=== PATIENT | male | born 1975 | race Caucasian/White ===

== ENCOUNTER 2019-07-04 11:33 | Emergency (ER) | payer MEDICAID ==
[~2019-07-04] VITALS: Ht 185.4 cm; Wt 68.0 kg
--- NOTE | 2019-07-04 11:41 | NUR ---
ED Nurse Note: PT brought in by 49 from home for ETOH comsumption. pt reports binge drinking x 4 days with n/v. pt. aaox4. ambulatory with steady gait. no s/s of acute distress noted
[2019-07-04 11:43] VITALS: BP 126/84
[2019-07-04] MEDS ORDERED: Thiamine HCl 100 MG in D5W 55 ML IVPB ONE (12:00)
[2019-07-04] MEDS ORDERED: LORazepam Inj 2mg/ml 1ml IV ONE (12:00)
[2019-07-04 12:25] LABS: EOSINOPHILS % (AUTO) 1.6 % (0.0-3.0); HEMATOCRIT 49.1 % (42.0-52.0); HEMOGLOBIN 17.1 G/DL (14.2-18.0); LYMPHOCYTES % (AUTO) 41.2 % (20.0-45.0); MEAN CORPUSCULAR VOLUME 95 FL (80-99); MONOCYTES % (AUTO) 8.7 % (1.0-10.0); NEUTROPHILS % (AUTO) 47.5 % (45.0-75.0); PLATELET COUNT 194 K/UL (150-450); RED BLOOD COUNT 5.17 M/UL (4.70-6.10); RED CELL DISTRIBUTION WIDTH 11.2 % (11.6-14.8); WHITE BLOOD COUNT 5.6 K/UL (4.8-10.8)
--- NOTE | 2019-07-04 12:28 | NUR ---
ED Nurse Note: Blood sample urine sent down to lab
--- NOTE | 2019-07-04 12:34 | NUR ---
ED Nurse Note: accucheck 68, orange juice and sodagive. pt is alert x4 .
[2019-07-04] MEDS ORDERED: ZOFRAN4 M3 ORAL (12:40)
[2019-07-04] MEDS ORDERED: ATIVAN1 MG ORAL (12:40)
[2019-07-04] MEDS ORDERED: OMEPRAZOLE20 M2 ORAL (12:40)
--- NOTE | 2019-07-04 12:43 | NUR ---
ED Nurse Note: turned of the lights to promote a relaxing environment
[2019-07-04 12:45] LABS: APPEARANCE,URINE CLEAR; BILIRUBIN, URINE NEGATIVE (NEGATIVE); COLOR,URINE PALE YELLOW; GLUCOSE, URINE (UA) NEGATIVE (NEGATIVE); KETONES,URINE 1+ (NEGATIVE); LEUKOCYTE ESTERASE ,URINE NEGATIVE (NEGATIVE); NITRITE,URINE NEGATIVE (NEGATIVE); PH,URINE 6.5 (4.5-8.0); PROTEIN,URINE NEGATIVE (NEGATIVE); UROBILINOGEN,URINE NORMAL MG/DL (0.0-1.0)
[2019-07-04 12:56] LABS: ALANINE AMINOTRANSFERASE 87 U/L (12-78); ALBUMIN 4.4 G/DL (3.4-5.0); ALBUMIN/GLOBULIN RATIO 1.1 (1.0-2.7); ALKALINE PHOSPHATASE 115 U/L (46-116); ASPARTATE AMINO TRANSFERASE 174 U/L (15-37); BILIRUBIN,TOTAL 0.9 MG/DL (0.2-1.0); BLOOD UREA NITROGEN 12 mg/dL (7-18); CALCIUM 9.1 MG/DL (8.5-10.1); CARBON DIOXIDE 25 MMOL/L (21-32); CREATININE 0.8 MG/DL (0.55-1.30)
[2019-07-04 12:59] LABS: PHOSPHORUS 4.4 MG/DL (2.5-4.9)
[2019-07-04 13:03] LABS: CHLORIDE 102 MMOL/L (98-107); POTASSIUM 4.3 MMOL/L (3.5-5.1); SODIUM 143 MMOL/L (136-145)
[2019-07-04 14:11] VITALS: BP 129/74
--- NOTE | 2019-07-04 14:11 | NUR ---
ER DISCHARGE NOTE: Patient is cleared to be discharged per ERMD, pt is aox4, on room air, with stable vital signs. pt was given dc and prescription instructions, pt was able to verbalize understanding, pt id band and iv site removed without complications. pt is able to ambulate with steady gait. pt took all belongings.
--- NOTE | 2019-07-10 23:15 | Emergency Room Report ---
History of Present Illness General Chief Complaint: Alcohol Intoxication Source: Patient Present Illness HPI Is a 43-year-old male presents after increased altered mental status. Patient reportedly had been drinking heavily for the past 4 days associated with nausea and vomiting. Prior history of alcohol abuse. He had previously been noted to have some episodes of withdrawal in the past. Allergies: Coded Allergies: No Known Allergies (Unverified , 07/04/19) Patient History Past Medical History: see triage record Reviewed Nursing Documentation: PMH: Agreed; PSxH: Agreed Nursing Documentation-PM Past Medical History: No History, Except For Review of Systems All Other Systems: negative except mentioned in HPI Physical Exam Sp02 EP Interpretation: reviewed, normal General Appearance: normal inspection, well appearing, no apparent distress, alert, GCS 15, non-toxic Head: atraumatic ENT: normal ENT inspection, hearing grossly normal, normal voice Neck: normal inspection, full range of motion, supple, no bony tend Respiratory: normal inspection, lungs clear, normal breath sounds, no respiratory distress, no retraction, no wheezing Cardiovascular #1: regular rate, rhythm, no edema Gastrointestinal: normal inspection, normal bowel sounds, non tender, soft, no guarding, no hernia Genitourinary: no CVA tenderness Musculoskeletal: normal inspection, back normal, normal range of motion Neurologic: alert, motor strength/tone normal, manager of internal audit III-XII nml as tested, responsive, speech normal, normal inspection, other - Tremulous Psychiatric: normal inspection, judgement/insight normal, mood/affect normal Medical Decision Making Diagnostic Impression: Primary Impression: Alcohol withdrawal ER Course Patient presented for increased shakiness and recent alcohol intake. Differential diagnosis include was not limited to alcohol intoxication, electrolyte abnormality, alcohol withdrawal, stimulant use among others. Because of complexity of patient's case laboratory tests and imaging studies were ordered. Patient did have a negative blood alcohol level. He was given IV thiamine as well as IV Ativan with improvement of symptoms. Patient was noted to have decreased tremulousness. He was able to ambulate without assistance. Patient was given prescription for Ativan and was advised to follow -up with outpatient substance abuse treatment. He was advised to return if worse. The patient is advised to follow up with primary care doctor in 1-2 days. Patient is advised to return if any worsening condition or if any changes in status that are concerning. This report is dictated with File[employer] associate professor of geography software which may occasionally lead to discrepancies related to use of this software. Labs Test 07/04/19 12:09 07/04/19 12:18 Urine Color Pale yellow Urine Appearance Clear Urine pH 6.5 (4.5-8.0) Urine Specific Parsons 1.010 (1.005-1.035) Urine Protein Negative (NEGATIVE) Urine Glucose (UA) Negative (NEGATIVE) Urine Ketones 1+ (NEGATIVE) Urine Blood Negative (NEGATIVE) Urine Nitrite Negative (NEGATIVE) Urine Bilirubin Negative (NEGATIVE) Urine Urobilinogen Normal MG/DL (0.0-1.0) Urine Leukocyte Esterase Negative (NEGATIVE) Urine Opiates Screen Negative (NEGATIVE) Urine Barbiturates Screen Negative (NEGATIVE) Phencyclidine (PCP) Screen Negative (NEGATIVE) Urine Amphetamines Screen Negative (NEGATIVE) Urine Benzodiazepines Screen Negative (NEGATIVE) Urine Cocaine Screen Negative (NEGATIVE) Urine Marijuana (THC) Screen Positive (NEGATIVE) White Blood Count 5.6 K/UL (4.8-10.8) Red Blood Count 5.17 M/UL (4.70-6.10) Hemoglobin 17.1 G/DL (14.2-18.0) Hematocrit 49.1 % (42.0-52.0) Mean Corpuscular Volume 95 FL (80-99) Mean Corpuscular Hemoglobin 33.0 PG (27.0-31.0) Mean Corpuscular Hemoglobin Concent 34.8 G/DL (32.0-36.0) Red Cell Distribution Width 11.2 % (11.6-14.8) Platelet Count 194 K/UL (150-450) Mean Platelet Volume 5.5 FL (6.5-10.1) Neutrophils (%) (Auto) 47.5 % (45.0-75.0) Lymphocytes (%) (Auto) 41.2 % (20.0-45.0) Monocytes (%) (Auto) 8.7 % (1.0-10.0) Eosinophils (%) (Auto) 1.6 % (0.0-3.0) Basophils (%) (Auto) 1.0 % (0.0-2.0) Sodium Level 143 MMOL/L (136-145) Potassium Level 4.3 MMOL/L (3.5-5.1) Chloride Level 102 MMOL/L (98-107) Carbon Dioxide Level 25 MMOL/L (21-32) Blood Urea Nitrogen 12 mg/dL (7-18) Creatinine 0.8 MG/DL (0.55-1.30) Estimat Glomerular Filtration Rate > 60 mL/min (>60) Glucose Level 77 MG/DL (74-106) Calcium Level 9.1 MG/DL (8.5-10.1) Phosphorus Level 4.4 MG/DL (2.5-4.9) Magnesium Level 2.0 MG/DL (1.8-2.4) Total Bilirubin 0.9 MG/DL (0.2-1.0) Aspartate Amino Transf (AST/SGOT) 174 U/L (15-37) Alanine Aminotransferase (ALT/SGPT) 87 U/L (12-78) Alkaline Phosphatase 115 U/L (46-116) Total Protein 8.5 G/DL (6.4-8.2) Albumin 4.4 G/DL (3.4-5.0) Globulin 4.1 g/dL Albumin/Globulin Ratio 1.1 (1.0-2.7) Salicylates Level 2.4 ug/mL (2.8-20) Acetaminophen Level < 0 MCG/ML (10-30) Serum Alcohol < 2 mg/dL Status: improved Disposition: HOME, SELF-CARE Condition: Stable Scripts Omeprazole (OMEPRAZOLE) 20 Mg Capsule.dr 20 MG ORAL DAILY, #30 CAP Prov: Oliverio Tomlinson MD 07/04/19 Ondansetron* (ZOFRAN*) 4 Mg Tablet 4 MG ORAL Q6H PRN for Nausea & Vomiting, #14 TAB Prov: Oliverio Tomlinson MD 07/04/19 Lorazepam* (ATIVAN*) 1 Mg Tablet 1 MG ORAL THREE TIMES A DAY, #15 TAB Prov: Oliverio Tomlinson MD 07/04/19 Referrals: NOT CHOSEN IPA/,REFERRING (PCP) Patient Instructions: Alcohol Intoxication, [id number] Additional Instructions: Follow up with outpatient alcohol therapy. Return if worse. Oliverio Tomlinson MD Jul 10, 2019 23:15
== END 2019-07-04 14:11 | disposition home or self-care (01) ==
LOC: EDBD 11:33 → EMR 14:11
DX: F10.129 Alcohol abuse with intoxication, unspecified (principal); R11.2 Nausea with vomiting, unspecified
CPT/HCPCS: 36415; 80053; 80307; 81003; 82962; 83735; 84100; 85025; 96361; 96365; 96375; G0480; G0481; J7030; Z7502; 99284

== ENCOUNTER 2019-07-11 16:00 | Emergency (ER) | payer MEDICAID ==
[~2019-07-11] VITALS: Ht 188 cm; Wt 68.0 kg
[~2019-07-11 16:00] MED LIST: ATIVAN1 MG ORAL; OMEPRAZOLE20 M2 ORAL; ZOFRAN4 M3 ORAL
[2019-07-11] MEDS ORDERED: Thiamine HCl 100 MG in D5W 55 ML IV ONE (16:45)
--- NOTE | 2019-07-11 17:05 | NUR ---
ED Nurse Note:blood and urine sent to labs and IV fluids with med given to him
[2019-07-11 17:12] VITALS: BP 128/89
[2019-07-11 17:33] LABS: APPEARANCE,URINE CLEAR; BILIRUBIN, URINE NEGATIVE (NEGATIVE); COLOR,URINE AMBER; GLUCOSE, URINE (UA) NEGATIVE (NEGATIVE); HEMATOCRIT 42.6 % (42.0-52.0); KETONES,URINE NEGATIVE (NEGATIVE); LEUKOCYTE ESTERASE ,URINE NEGATIVE (NEGATIVE); MEAN CORPUSCULAR VOLUME 96 FL (80-99); NITRITE,URINE NEGATIVE (NEGATIVE); PH,URINE 6 (4.5-8.0); PLATELET COUNT 94 K/UL (150-450); PROTEIN,URINE NEGATIVE (NEGATIVE); RED BLOOD COUNT 4.45 M/UL (4.70-6.10); RED CELL DISTRIBUTION WIDTH 11.2 % (11.6-14.8); UROBILINOGEN,URINE NORMAL MG/DL (0.0-1.0); WHITE BLOOD COUNT 4.5 K/UL (4.8-10.8)
[2019-07-11 17:43] LABS: ANION GAP 15 mmol/L (5-15); BLOOD UREA NITROGEN 11 mg/dL (7-18); CALCIUM 8.2 MG/DL (8.5-10.1); CARBON DIOXIDE 26 MMOL/L (21-32); CHLORIDE 106 MMOL/L (98-107); CREATININE 0.8 MG/DL (0.55-1.30); POTASSIUM 3.8 MMOL/L (3.5-5.1); SODIUM 147 MMOL/L (136-145)
[2019-07-11 17:48] LABS: ALANINE AMINOTRANSFERASE 132 U/L (12-78); ALBUMIN 3.8 G/DL (3.4-5.0); ALBUMIN/GLOBULIN RATIO 1.1 (1.0-2.7); ALKALINE PHOSPHATASE 104 U/L (46-116); ASPARTATE AMINO TRANSFERASE 179 U/L (15-37); BILIRUBIN,TOTAL 0.4 MG/DL (0.2-1.0)
[2019-07-11 17:49] LABS: PHOSPHORUS 3.7 MG/DL (2.5-4.9)
[2019-07-11 18:10] VITALS: BP 106/66
[2019-07-11] MEDS ORDERED: LORazepam 0.5mg tab ORAL ONE (18:15)
--- NOTE | 2019-07-11 18:16 | Emergency Room Report ---
History of Present Illness General Chief Complaint: Seizure Source: Patient Present Illness HPI 43 YO Male presents to the ED C/O " not feeling well" and feeling "very weak" x 1 week. Pt. has hx of ETOH dependence and is scheduled to be checked into detox facility [place] in [place]. Pt. has been detoxing at home with rx'd Ativan. Pt. reports very minimal use if needed. Pt. reports he "face planted at home" He c/o 3/10 in severity CORTES. and reports some tenderness to the top of his head. Denies bruises or lacerations. He denies nausea or vomiting. Pt. is restless. He denies open wounds or bleeding. 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 He reports previous IVDU and states he has been clean x 6 weeks. previous drug of choice was Meth. He denies fevers or chills. He reports total body aches. He also reports hx of liver disease,Hep C.and Crohn's disease. Significant other who is bedside reports pt. is constantly c/o " not feeling well" and she reports she has noticed he has intermittent episodes of slurred speech and drooling that is transient. Pt. denies loss of gross motor movements or paresthesias. responsible libertarian who is bedside reports she is with him from 8pm to early mornings, pt. is alone the rest of the time. Pt. is a daily smoker . Allergies: Coded Allergies: No Known Allergies (Unverified , 07/04/19) Patient History Past Medical History: see triage record, other - hep. c. and crohn's Past Surgical History: none Pertinent Family History: none Social History: Reports: alcohol use, drug use - in remission- meth Reviewed Nursing Documentation: PMH: Agreed; PSxH: Agreed Nursing Documentation-PMH Hx Seizures: Yes - ALCOHOL INDUCED Review of Systems All Other Systems: negative except mentioned in HPI Physical Exam Vital Signs Date Time Temp Pulse Resp B/P (MAP) Pulse Ox O2 Delivery O2 Flow Rate FiO2 07/11/19 16:12 97.5 100 18 128/89 (102) 96 Sp02 EP Interpretation: reviewed, normal General Appearance: no apparent distress, alert, GCS 15, non-toxic Head: normocephalic, atraumatic Eyes: bilateral eye normal inspection, bilateral eye PERRL, bilateral eye EOMI , bilateral eye other - no jaundice ENT: hearing grossly normal, normal voice, other - no oral trauma/ bleeding Neck: full range of motion, no meningismus Respiratory: chest non-tender, lungs clear, normal breath sounds, no respiratory distress, no accessory muscle use, no wheezing, speaking full sentences Cardiovascular #1: regular rate, rhythm, normal capillary refill Gastrointestinal: normal bowel sounds, non tender, soft, non-distended, no guarding Musculoskeletal: normal range of motion, gait/station normal, non-tender Neurologic: alert, motor strength/tone normal, human resource internship III-XII nml as tested, distal neuro normal, oriented x3, sensory intact, responsive, speech normal, normal gait, grossly normal, no focal defects, other - equal manager logistic strength, negative pronator drift. normal finger to nose, no nystagmus, negative rhomberg. No facial droop. No obvious liver flap Psychiatric: judgement/insight normal, other Skin: no rash, normal color - no jaundice Lymphatic: no adenopathy Medical Decision Making PA Attestation Dr. Wynn is my supervising Physician whom patient management has been discussed with. Diagnostic Impression: Primary Impression: Alcohol dependence with acute intoxication, continuous Qualified Codes: F10.220 - Alcohol dependence with intoxication, uncomplicated ER Course 43 YO Male presents to the ED C/O " not feeling well" and feeling "very weak" x 1 week. Pt. has hx of ETOH dependence and is scheduled to be checked into detox facility tomorrow in [place]. Pt. has been detoxing at home with rx'd Ativan. Pt. reports very minimal use if needed. Pt. reports he "face planted at home" He c/o 3/10 in severity CORTES. and reports some tenderness to the top of his head. Denies bruises or lacerations. He denies nausea or vomiting. Pt. is restless. He denies open wounds or bleeding. 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 He reports previous IVDU and states he has been clean x 6 weeks. previous drug of choice was Meth. He denies fevers or chills. He reports total body aches. He also reports hx of liver disease,Hep C.and Crohn's disease. Significant other who is bedside reports pt. is constantly c/o " not feeling well" and she reports she has noticed he has intermittent episodes of slurred speech and drooling that is transient. Pt. denies loss of gross motor movements or paresthesias. responsible libertarian who is bedside reports she is with him from 8pm to early mornings, pt. is alone the rest of the time. Pt. is a daily smoker. Ddx considered but are not limited to ETOH, Trauma, Syncope, dementia, OD, encephalopathy, intracranial bleed/subdural hematoma, CVA, acute alcohol intoxication, electrolyte abnormality just to name a few Vital signs: are WNL, pt. is afebrile H&PE are most consistent with ETOH abuse and continued use. Patient is somewhat anxious but is able to sit still and answer questions appropriately. Patient's vital signs are normal and do not indicate acute complicated withdrawal symptoms at this time. PT. neuro exam is normal. No focal deficits. Normal motor function. Pt. able to answer questions and provide sufficient amount of detail without difficulty with word recall or increased response time. ORDERS: -CBC:4.2 wbc's -CMP: Elevated LFT's , AST> ALT -ETOH: 312 -Ammonia: WNL -Magnesium: WNL - UDS: Positive for THC. Tylenol and ASA; WNL CT Head No Contrast: "No acute intracranial hemorrhage, extra-axial fluid collection, edema, mass-effect or acute cortical infarct. No fracture." Per official radiology report- Please see report for specific details. ED INTERVENTIONS: --1 Liter NS - Thiamine IV - Ativan 0.5 PO -Toradol 15mg IV Pt. requested additional Ativan for w/d symptoms. Pt. was denied additional dose as his ETOH was elevated, and he has normal VS that do not indicate acute w /d. Pt. requested to be d/c shortly after. DISCHARGE: At this time pt. is stable for d/c to home. Will provide printed patient care instructions, and any necessary prescriptions. Care plan and follow up instructions have been discussed with the patient prior to discharge. Labs Test 07/11/19 16:50 White Blood Count 4.5 K/UL (4.8-10.8) Red Blood Count 4.45 M/UL (4.70-6.10) Hemoglobin 15.0 G/DL (14.2-18.0) Hematocrit 42.6 % (42.0-52.0) Mean Corpuscular Volume 96 FL (80-99) Mean Corpuscular Hemoglobin 33.6 PG (27.0-31.0) Mean Corpuscular Hemoglobin Concent 35.1 G/DL (32.0-36.0) Red Cell Distribution Width 11.2 % (11.6-14.8) Platelet Count 94 K/UL (150-450) Mean Platelet Volume 5.4 FL (6.5-10.1) Neutrophils (%) (Auto) % (45.0-75.0) Lymphocytes (%) (Auto) % (20.0-45.0) Monocytes (%) (Auto) % (1.0-10.0) Eosinophils (%) (Auto) % (0.0-3.0) Basophils (%) (Auto) % (0.0-2.0) Differential Total Cells Counted 100 Neutrophils % (Manual) 45 % (45-75) Lymphocytes % (Manual) 37 % (20-45) Monocytes % (Manual) 6 % (1-10) Eosinophils % (Manual) 2 % (0-3) Basophils % (Manual) 0 % (0-2) Band Neutrophils 0 % (0-8) Platelet Estimate Decreased Platelet Morphology Normal Red Blood Cell Morphology Normal Urine Color Elli Urine Appearance Clear Urine pH 6 (4.5-8.0) Urine Specific Fries 1.015 (1.005-1.035) Urine Protein Negative (NEGATIVE) Urine Glucose (UA) Negative (NEGATIVE) Urine Ketones Negative (NEGATIVE) Urine Blood 1+ (NEGATIVE) Urine Nitrite Negative (NEGATIVE) Urine Bilirubin Negative (NEGATIVE) Urine Ictotest Negative (NEGATIVE) Urine Urobilinogen Normal MG/DL (0.0-1.0) Urine Leukocyte Esterase Negative (NEGATIVE) Urine RBC 2-4 /HPF (0 - 0) Urine WBC 0 /HPF (0 - 0) Urine Squamous Epithelial Cells Occasional /LPF Urine Bacteria Few /HPF (NONE) Urine Mucus Many /LPF (NONE/OCC) Urine Sperm Few /LPF (NONE) Sodium Level 147 MMOL/L (136-145) Potassium Level 3.8 MMOL/L (3.5-5.1) Chloride Level 106 MMOL/L (98-107) Carbon Dioxide Level 26 MMOL/L (21-32) Anion Gap 15 mmol/L (5-15) Blood Urea Nitrogen 11 mg/dL (7-18) Creatinine 0.8 MG/DL (0.55-1.30) Estimat Glomerular Filtration Rate > 60 mL/min (>60) Glucose Level 88 MG/DL (74-106) Calcium Level 8.2 MG/DL (8.5-10.1) Phosphorus Level 3.7 MG/DL (2.5-4.9) Magnesium Level 1.9 MG/DL (1.8-2.4) Total Bilirubin 0.4 MG/DL (0.2-1.0) Aspartate Amino Transf (AST/SGOT) 179 U/L (15-37) Alanine Aminotransferase (ALT/SGPT) 132 U/L (12-78) Alkaline Phosphatase 104 U/L (46-116) Ammonia 12 umol/L (11-32) Total Protein 7.4 G/DL (6.4-8.2) Albumin 3.8 G/DL (3.4-5.0) Globulin 3.6 g/dL Albumin/Globulin Ratio 1.1 (1.0-2.7) Salicylates Level 2.6 ug/mL (2.8-20) Urine Opiates Screen Negative (NEGATIVE) Acetaminophen Level < 2 MCG/ML (10-30) Urine Barbiturates Screen Negative (NEGATIVE) Phencyclidine (PCP) Screen Negative (NEGATIVE) Urine Amphetamines Screen Negative (NEGATIVE) Urine Benzodiazepines Screen Negative (NEGATIVE) Urine Cocaine Screen Negative (NEGATIVE) Urine Marijuana (THC) Screen Positive (NEGATIVE) Serum Alcohol 315 mg/dL CT/MRI/US Diagnostic Results CT/MRI/US Diagnostic Results : Imaging Test Ordered: CT Head No Contrast Impression "No acute intracranial hemorrhage, extra-axial fluid collection, edema, mass- effect or acute cortical infarct. No fracture." Per official radiology report - Please see report for specific details. Last Vital Signs Date Time Temp Pulse Resp B/P (MAP) Pulse Ox O2 Delivery O2 Flow Rate FiO2 07/11/19 18:10 97.5 87 18 106/66 96 Status: improved - VS improved Disposition: HOME, SELF-CARE Condition: Stable Scripts Ibuprofen* (MOTRIN*) 400 Mg Tablet 400 MG ORAL THREE TIMES A DAY, #9 TAB 0 Refills Prov: Rozina Kam 07/11/19 Patient Instructions: Alcohol Abuse and Nutrition, Alcohol Intoxication Additional Instructions: Take any previously prescribed medications as directed. Discontinue use of alcohol. MAKE SURE YOU GO to YOUR INTAKE APPT. TOMORROW AT [facility] in [place] Follow up with a Primary Care Provider in 3-5 days, even if your symptoms have resolved. --Please review list of primary care clinics, if you do not already have a primary care provider Return sooner to ED if new symptoms occur, or current symptoms become worse. - Please note that this Emergency Department Report was dictated using [employer] observer technology software, occasionally this can lead to erroneous entry secondary to interpretation by the dictation equipment. Rozina Kma Jul 11, 2019 18:16
[2019-07-11 18:24] LABS: AMMONIA 12 umol/L (11-32)
--- NOTE | 2019-07-11 19:15 | NUR ---
ED Nurse Note: Received report from MARIA DEL CARMEN Herrera.
[2019-07-11] MEDS ORDERED: Ketorolac 30mg Inj IV ONE (19:30)
--- NOTE | 2019-07-11 19:36 | NUR ---
ED Nurse Note: Patient taken to CT in stable condition.
--- NOTE | 2019-07-11 19:40 | NUR ---
ED Nurse Note: Patient returned from CT in stable condition. Patient requested for food and something to drink, provided with sandwich and juice.
--- NOTE | 2019-07-11 20:13 | Diagnostic Imaging Report ---
Indication: Pain, headache Technique: One view of the chest Comparison: none Findings: No acute intracranial hemorrhage or edema. No mass effect nor midline shift. Normal gandhi-white differentiation. Normal size ventricles and extra axial CSF spaces. Intact calvarium. Visualized orbits and sinuses are unremarkable. The mastoids are clear. Impression: Negative
[2019-07-11] MEDS ORDERED: IBUPROFEN400 MG ORAL (20:30)
[2019-07-11 20:33] VITALS: BP 115/72
--- NOTE | 2019-07-11 20:33 | NUR ---
ER DISCHARGE NOTE: Patient is cleared to be discharged per ER provider, pt is aox4, on room air, with stable vital signs. pt was given dc and prescription instructions, pt was able to verbalize understanding, pt id band and iv site removed intact without complications. pt is able to ambulate with steady gait. pt took all belongings. pt stable upon discharge.
[2019-07-12] MEDS ORDERED: ONDANSETRON ODT4 MG BC (15:14)
[2019-07-12] MEDS ORDERED: ATIVAN1 MG ORAL (15:14)
== END 2019-07-11 20:33 | disposition home or self-care (01) ==
LOC: EMR 18:20
DX: F10.220 Alcohol dependence with intoxication, uncomplicated (principal); G40.509 Epileptic seizures related to external causes, not intractable, without status epilepticus; F15.11 Other stimulant abuse, in remission; K50.90 Crohn's disease, unspecified, without complications; Y90.8 Blood alcohol level of 240 mg/100 ml or more; Z86.19 Personal history of other infectious and parasitic diseases
CPT/HCPCS: 36415; 70450; 80053; 80307; 81003; 82140; 83735; 84100; 85007; 85025; 96365; 96375; G0480; G0481; J1885; J7030; Z7502; 99284

== ENCOUNTER 2019-07-12 12:09 | Emergency (ER) | payer MEDICAID ==
[~2019-07-12] VITALS: Ht 188 cm; Wt 68.0 kg
[~2019-07-12 12:09] MED LIST changes: +IBUPROFEN400 MG ORAL
[2019-07-12 12:30] VITALS: BP 136/88
--- NOTE | 2019-07-12 12:30 | NUR ---
ED Nurse Note: Pt came in to ED d/t ETOH tremors. Per pt, he had alcohol intake at 5AM this morning. Pt is AOx4, calm noted with mild tremors, mild anxiety. Placed on bed and gown. Pt is able to urinate via urinal, obtained specimen; sent to labs.
[2019-07-12 13:13] LABS: HEMATOCRIT 40.2 % (42.0-52.0); HEMOGLOBIN 14.3 G/DL (14.2-18.0); MEAN CORPUSCULAR VOLUME 95 FL (80-99); PLATELET COUNT 93 K/UL (150-450); RED BLOOD COUNT 4.24 M/UL (4.70-6.10); WHITE BLOOD COUNT 3.7 K/UL (4.8-10.8)
[2019-07-12] MEDS ORDERED: LORazepam Inj 2mg/ml 1ml IV ONE ×2 (13:15→15:15)
--- NOTE | 2019-07-12 13:22 | Emergency Room Report ---
History of Present Illness General Chief Complaint: Alcohol Intoxication Source: Patient Present Illness HPI 43-year-old male presents the ED. Walked in stating that he is going through alcohol withdrawals. States last drink was this morning. Shaky and anxious. Denies hearing voices. Denies SI or HI. Denies drug use. No other aggravating relieving factors. Denies any other associated symptoms Allergies: Coded Allergies: No Known Allergies (Unverified , 07/04/19) Patient History Past Medical History: none Past Surgical History: none Pertinent Family History: none Social History: Reports: alcohol use; Denies: smoking, drug use Immunizations: UTD Reviewed Nursing Documentation: PMH: Agreed; PSxH: Agreed Nursing Documentation-PMH Past Medical History: No History, Except For Hx Seizures: Yes - ALCOHOL INDUCED Review of Systems All Other Systems: negative except mentioned in HPI Physical Exam Vital Signs Date Time Temp Pulse Resp B/P (MAP) Pulse Ox O2 Delivery O2 Flow Rate FiO2 07/12/19 12:18 97.9 116 19 136/88 (104) 98 Room Air Sp02 EP Interpretation: reviewed, normal General Appearance: no apparent distress, alert, GCS 15, non-toxic Head: normocephalic, atraumatic Eyes: bilateral eye normal inspection, bilateral eye PERRL ENT: hearing grossly normal, normal pharynx, no angioedema, normal voice Neck: full range of motion, supple/symm/no masses Respiratory: chest non-tender, lungs clear, normal breath sounds, speaking full sentences Cardiovascular #1: regular rate, rhythm, no edema Cardiovascular #2: 2+ carotid (R), 2+ carotid (L), 2+ radial (R), 2+ radial (L) , 2+ dorsalis pedis (R), 2+ dorsalis pedis (L) Gastrointestinal: normal bowel sounds, non tender, soft, non-distended, no guarding, no rebound Rectal: deferred Genitourinary: normal inspection, no CVA tenderness Musculoskeletal: back normal, normal range of motion, gait/station normal, non- tender Neurologic: alert, motor strength/tone normal, oriented x3, sensory intact, responsive, speech normal, other - tremulous Psychiatric: judgement/insight normal, memory normal, no suicidal/homicidal ideation, no delusions, anxious Reflexes: 3+ bicep (R), 3+ bicep (L), 3+ tricep (R), 3+ tricep (L), 3+ knee (R) , 3+ knee (L) Skin: no rash Lymphatic: no adenopathy Medical Decision Making Diagnostic Impression: Primary Impression: Alcohol withdrawal Qualified Codes: F10.239 - Alcohol dependence with withdrawal, unspecified ER Course Hospital Course 43-year-old male presents ED complaining of shaking, stating he is in withdrawal. Chronic history of alcohol use Differential diagnoses include: Alcohol intoxication, drug abuse, opioid withdrawal, alcohol withdrawal, dehydration, drug seeking behavior Clinical course Patient placed on stretcher. 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 After initial history and physical I ordered labs, IV fluids, Ativan Labs reviewed-electrolytes okay, hemoglobin/hematocrit stable, no leukocytosis, alcohol level > 200, LFTs elevated, aspirin/Tylenol levels negative On reassessment patient feels better. Vitals stable. Appears less tremulous. Awake alert oriented x3. Girlfriend at bedside. Patient agrees to discharge. Given additional dose of Ativan. Will discharge with short course of Ativan, Zofran. Also provide detox referrals. Safe for discharge with close outpatient follow-up i. I feel this is a highly complex case requiring extensive working including EKG/Rhythm strip, Xray/CT/US, Blood/urine lab work, repeat exams while in ED, and administration of strong opiates/narcotics for pain control, admission to hospital or close patient follow up. Diagnosis - alcohol withdrawal Stable and discharged to home with prescription for ativan, zofran. Followup with PMD. Return to ED if symptoms recur or worsen Labs Test 07/12/19 12:51 07/12/19 12:58 Urine Opiates Screen Negative (NEGATIVE) Urine Barbiturates Screen Negative (NEGATIVE) Phencyclidine (PCP) Screen Negative (NEGATIVE) Urine Amphetamines Screen Negative (NEGATIVE) Urine Benzodiazepines Screen Negative (NEGATIVE) Urine Cocaine Screen Negative (NEGATIVE) Urine Marijuana (THC) Screen Positive (NEGATIVE) White Blood Count 3.7 K/UL (4.8-10.8) Red Blood Count 4.24 M/UL (4.70-6.10) Hemoglobin 14.3 G/DL (14.2-18.0) Hematocrit 40.2 % (42.0-52.0) Mean Corpuscular Volume 95 FL (80-99) Mean Corpuscular Hemoglobin 33.8 PG (27.0-31.0) Mean Corpuscular Hemoglobin Concent 35.7 G/DL (32.0-36.0) Red Cell Distribution Width 11.0 % (11.6-14.8) Platelet Count 93 K/UL (150-450) Mean Platelet Volume 6.2 FL (6.5-10.1) Neutrophils (%) (Auto) % (45.0-75.0) Lymphocytes (%) (Auto) % (20.0-45.0) Monocytes (%) (Auto) % (1.0-10.0) Eosinophils (%) (Auto) % (0.0-3.0) Basophils (%) (Auto) % (0.0-2.0) Differential Total Cells Counted 100 Neutrophils % (Manual) 70 % (45-75) Lymphocytes % (Manual) 26 % (20-45) Monocytes % (Manual) 3 % (1-10) Eosinophils % (Manual) 1 % (0-3) Basophils % (Manual) 0 % (0-2) Band Neutrophils 0 % (0-8) Platelet Estimate Decreased Platelet Morphology Normal Red Blood Cell Morphology Normal Sodium Level 143 MMOL/L (136-145) Potassium Level 3.6 MMOL/L (3.5-5.1) Chloride Level 106 MMOL/L (98-107) Carbon Dioxide Level 25 MMOL/L (21-32) Anion Gap 13 mmol/L (5-15) Blood Urea Nitrogen 9 mg/dL (7-18) Creatinine 0.7 MG/DL (0.55-1.30) Estimat Glomerular Filtration Rate > 60 mL/min (>60) Glucose Level 174 MG/DL (74-106) Calcium Level 8.3 MG/DL (8.5-10.1) Total Bilirubin 0.4 MG/DL (0.2-1.0) Aspartate Amino Transf (AST/SGOT) 155 U/L (15-37) Alanine Aminotransferase (ALT/SGPT) 121 U/L (12-78) Alkaline Phosphatase 94 U/L (46-116) Troponin I 0.000 ng/mL (0.000-0.056) Total Protein 7.0 G/DL (6.4-8.2) Albumin 3.7 G/DL (3.4-5.0) Globulin 3.3 g/dL Albumin/Globulin Ratio 1.1 (1.0-2.7) Salicylates Level 2.4 ug/mL (2.8-20) Acetaminophen Level < 2 MCG/ML (10-30) Serum Alcohol 260 mg/dL Last Vital Signs Date Time Temp Pulse Resp B/P (MAP) Pulse Ox O2 Delivery O2 Flow Rate FiO2 07/12/19 12:30 97.9 115 19 136/88 98 Room Air Status: improved Disposition: HOME, SELF-CARE Condition: Stable Scripts Ondansetron Odt* (ZOFRAN ODT*) 4 Mg Tab.rapdis 4 MG BC EVERY 6 HOURS PRN for Nausea & Vomiting, #10 TAB 0 Refills Prov: Shelton Zaragoza MD 07/12/19 Lorazepam* (ATIVAN*) 1 Mg Tablet 1 MG ORAL THREE TIMES A DAY, #15 TAB Prov: Shelton Zaragoza MD 07/12/19 Referrals: NOT CHOSEN IPA/,REFERRING (PCP) Shelton Zaragoza MD Jul 12, 2019 13:22
[2019-07-12 13:26] VITALS: BP 119/74
[2019-07-12 13:27] LABS: ANION GAP 13 mmol/L (5-15); BLOOD UREA NITROGEN 9 mg/dL (7-18); CALCIUM 8.3 MG/DL (8.5-10.1); CARBON DIOXIDE 25 MMOL/L (21-32); CHLORIDE 106 MMOL/L (98-107); CREATININE 0.7 MG/DL (0.55-1.30); POTASSIUM 3.6 MMOL/L (3.5-5.1); SODIUM 143 MMOL/L (136-145)
[2019-07-12 13:31] LABS: ALANINE AMINOTRANSFERASE 121 U/L (12-78); ALBUMIN 3.7 G/DL (3.4-5.0); ALBUMIN/GLOBULIN RATIO 1.1 (1.0-2.7); ALKALINE PHOSPHATASE 94 U/L (46-116); ASPARTATE AMINO TRANSFERASE 155 U/L (15-37); BILIRUBIN,TOTAL 0.4 MG/DL (0.2-1.0)
[2019-07-12] MEDS ORDERED: ATIVAN1 MG ORAL (15:14)
[2019-07-12] MEDS ORDERED: ONDANSETRON ODT4 MG BC (15:14)
[2019-07-12] MEDS ORDERED: Ketorolac 30mg Inj IV ONE (15:15)
[2019-07-12 15:45] VITALS: BP 120/76
== END 2019-07-12 15:45 | disposition home or self-care (01) ==
LOC: EMR 12:50
DX: F10.239 Alcohol dependence with withdrawal, unspecified (principal)
CPT/HCPCS: 36415; 80053; 80307; 84484; 85007; 85025; 93005; 96361; 96374; 96375; 96376; G0480; G0481; J1885; J2405; J7030; Z7502; 99284

== ENCOUNTER 2019-10-09 22:40 | Emergency (ER) | payer OTHER ==
[~2019-10-09] VITALS: Ht 188 cm; Wt 81.6 kg
[~2019-10-09 22:40] MED LIST changes: +ONDANSETRON ODT4 MG BC
[2019-10-09 22:54] VITALS: BP 132/82
--- NOTE | 2019-10-09 22:58 | Emergency Room Report ---
History of Present Illness General Chief Complaint: Medical Clearance Source: Patient, Law Enforcement Present Illness HPI Patient brought in by [employer]. He was arrested on outstanding warrants. When they initially broke into his apartment he claimed that he was COVID-19 positive. Later he denied this. He denies fevers, chills. He does have a chronic cough that is not worsened at this time. In addition the patient has Crohn's disease and is complaining about diarrhea that somewhat bloody and yellow. This is not unusual for him. He denies significant pain in his abdomen at this time. Patient smokes cigarettes and uses cannabis. Has a history of alcohol abuse and has had withdrawal seizures. No recent seizures. No sore throat, chest pain, palpitations, nausea, vomiting, dysuria, shortness of breath, joint pain, rashes, depression, anxiety, visual changes, dizziness, headache. 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 Patient History Past Medical History: see triage record Social History: Reports: smoking, alcohol use, drug use Social History Narrative In custody Reviewed Nursing Documentation: PMH: Agreed; PSxH: Agreed Nursing Documentation-PMH Hx Seizures: Yes - ALCOHOL INDUCED Physical Exam Vital Signs Date Time Temp Pulse Resp B/P (MAP) Pulse Ox O2 Delivery O2 Flow Rate FiO2 10/09/19 22:41 98.1 88 22 132/82 (99) 94 Room Air Sp02 EP Interpretation: reviewed, normal General Appearance: well appearing, no apparent distress, GCS 15, non-toxic Head: normocephalic Eyes: bilateral eye PERRL, bilateral eye EOMI, bilateral eye Scleral Injection ENT: moist mucus membranes Respiratory: no respiratory distress Cardiovascular #1: regular rate, rhythm Gastrointestinal: normal inspection Musculoskeletal: gait/station normal Neurologic: alert, grossly normal Psychiatric: mood/affect normal Skin: no rash, warm/dry Medical Decision Making Diagnostic Impression: Primary Impression: Crohn disease Qualified Codes: K50.90 - Crohn's disease, unspecified, without complications Additional Impression: Medical evaluation for incarceration ER Course Patient presents for pre-book evaluation. Regarding his is planning that he might be COVID-19 positive his vital signs are stable at this time. No further work-up is needed. COVID-19 testing is also not indicated by us. He also complains of some chronic symptoms of Crohn's disease. Based on his exam no further work-up of this is required either. No apparent medical emergency at this time. Patient stable for booking. Last Vital Signs Date Time Temp Pulse Resp B/P (MAP) Pulse Ox O2 Delivery O2 Flow Rate FiO2 10/09/19 23:04 98.1 88 22 132/82 96 Room Air Status: unchanged Disposition: LAW ENFORCEMENT IN CUST Condition: Stable Pawan Hernandez MD October 09, 2019 22:58
[2019-10-09 23:04] VITALS: BP 132/82
== END 2019-10-09 23:03 ==
LOC: EMR 22:54
DX: K50.90 Crohn's disease, unspecified, without complications (principal); F17.200 Nicotine dependence, unspecified, uncomplicated; R05 Cough; F17.210 Nicotine dependence, cigarettes, uncomplicated; F12.90 Cannabis use, unspecified, uncomplicated
CPT/HCPCS: 99281